=== PATIENT | female | born 1970 | race Caucasian/White ===

== ENCOUNTER 2024-10-20 17:19 | Emergency (ER) | payer BC, SELFPAY ==
[2024-10-20 18:08] LABS: Glucose, Urine (Dipstick) Negative (Negative); Leukocyte Small (Negative); Protein, Urine (Dipstick) Negative (Neg-Trace); Specific Gravity, Urine Greater/Equal 1.030 (1.005-1.030)
[2024-10-20 18:15] LABS: Bacteria/HPF 4+ HPF (None Seen); CAUTI Indications for Culture Dysuria,urgency,freq; RBC/HPF None Seen HPF (0-3); WBC/HPF 21-50 HPF (0-3)
[2024-10-20 18:16] LABS: Urine Culture Reflex Yes Yes
== END 2024-10-20 18:19 | disposition home or self-care (01) ==
LOC: BURERS 17:19
DX: J06.9 Acute upper respiratory infection, unspecified (principal); N39.0 Urinary tract infection, site not specified; F17.290 Nicotine dependence, other tobacco product, uncomplicated; Z55.6 Problems related to health literacy
CPT/HCPCS: 81001; 87077; 87086; 87186; 99283